=== PATIENT | male | born 1945 | race Caucasian/White ===

== ENCOUNTER 2018-01-12 07:53 | Inpatient (IN) | payer MEDICARE, OTHER ==
[2018-01-12] MEDS ORDERED: ONDANSETRON 4MG/2ML VIAL (J2405) As Ordered ×3 (08:23→11:15)
[2018-01-12] MEDS ORDERED: LIDOCAINE 2% INJ 100 MG/5 ML SDV (FOR ANES.) As Ordered (08:23)
[2018-01-12] MEDS ORDERED: ROCURONIUM BROMIDE 50 MG/5 ML VIAL As Ordered ×2 (08:23→12:28)
[2018-01-12] MEDS ORDERED: PROPOFOL 200 MG/20 ML VIAL As Ordered (08:23)
[2018-01-12] MEDS ORDERED: fentaNYL 250 MCG/5 ML INJECTION (J3010) As Ordered (08:23)
[2018-01-12] MEDS ORDERED: MIDAZOLAM INJ 2 MG/2 ML VIAL (J2250) As Ordered (08:24)
[2018-01-12] MEDS: PERCOCET 5MG/325MG TAB PO ×3 (08:26→15:27)
[2018-01-12] MEDS: GABAPENTIN 300 MG CAP PO ×2 (08:26→20:43)
[2018-01-12] MEDS: CelecoXIB 400 MG CAP PO (08:27)
[2018-01-12] MEDS: LR 1,000 ML IV ×2 (08:27→14:11)
[2018-01-12] MEDS: ONDANSETRON 4MG/2ML VIAL (J2405) IV ×2 (09:24→21:24)
[2018-01-12] MEDS: BUPIVACAINE/EPIN 0.25% 30 ML VIAL As Ordered (10:56)
[2018-01-12] MEDS ORDERED: SUGAMMADEX SODIUM 500 MG/5 ML VIAL (BRIDION) As Ordered (10:56)
[2018-01-12] MEDS ORDERED: HYDROmorphone HCL 2 MG/ML 1ML VIAL (J1170) As Ordered (10:57)
[2018-01-12] MEDS: BACITRACIN PWD 50,000 UNITS VIAL As Ordered (11:45)
[2018-01-12] MEDS: THROMBIN SOLN 20,000 UNITS KIT As Ordered (13:00)
[2018-01-12] MEDS: TRANEXAMIC ACID 100 MG/ML 10ML VIAL As Ordered (13:29)
[2018-01-12] MEDS: EPINEPHrine INJ 1 MG/ML 1ML AMP As Ordered (13:29)
[2018-01-12] MEDS: BUPIVACAINE LIPOSOME/PF 1.3% 20 ML VIAL (13.3MG/ML)(EXPAREL) As Ordered (13:30)
[2018-01-12] MEDS: BUPIVACAINE HCL 0.5% 10 ML VIAL As Ordered (13:30)
[2018-01-12] MEDS ORDERED: HYDROMORPHONE HCL 0.5 MG/ 0.5 ML SYRINGE (J1170 PER 1) IV ×3 (14:30→15:00)
[2018-01-12] MEDS ORDERED: ONDANSETRON 4MG/2ML VIAL (J2405) IV (14:30)
[2018-01-12] MEDS: fentaNYL 100 MCG/2 ML INJECTION (J3010) IV (14:50)
[2018-01-12] MEDS ORDERED: NORCO, ANEXSIA 5/325MG TABLET (HYDROcodone/ACETAMINOPHEN) PO ×2 (15:00)
[2018-01-12] MEDS ORDERED: METOCLOPRAMIDE INJ 10MG/2ML VIAL (J2765) As Ordered (15:22)
[2018-01-12] MEDS: METOCLOPRAMIDE INJ 10MG/2ML VIAL (J2765) IV (15:27)
[2018-01-12] MEDS ORDERED: PROMETHAZINE INJ 25 MG/ML VIAL (J2550) IV (15:45)
[2018-01-12] MEDS: tiZANidine 4 MG TAB PO (20:43)
[2018-01-13 06:43] LABS: ANION GAP 9 MEQ/L (8-16); BLOOD UREA NITROGEN 34 MG/DL (7-18); CALCIUM LEVEL 8.3 MG/DL (8.8-10.2); CARBON DIOXIDE LEVEL 29 MEQ/L (21-32); CHLORIDE LEVEL 105 MEQ/L (98-107); CREATININE FOR GFR 1.55 MG/DL (0.70-1.30); GLUCOSE, FASTING 127 MG/DL (70-100); MAGNESIUM LEVEL 2.2 MG/DL (1.8-2.4); POTASSIUM SERUM 3.7 MEQ/L (3.5-5.1); SODIUM LEVEL 143 MEQ/L (136-145)
[2018-01-13] MEDS: ASPIRIN 81 MG CHEW TABLET PO (08:40)
[2018-01-13] MEDS: GABAPENTIN 300 MG CAP PO (08:41)
[2018-01-13] MEDS: POTASSIUM CHLORIDE 10 MEQ SR TABLET PO (08:41)
[2018-01-13] MEDS: ATORVASTATIN 20 MG TAB PO (08:41)
[2018-01-13] MEDS: amLODIPine 10 MG TAB PO (08:41)
[2018-01-13] MEDS: hydroCHLOROthiazide 25 MG TAB PO (08:41)
[2018-01-13] MEDS: ACETAMINOPHEN TAB 650MG DOSE (2X325MG) PO (08:42)
[2018-01-13] MEDS: METAMUCIL (PSYLLIUM) PACKET PO (08:42)
== END 2018-01-13 12:15 | disposition home or self-care (01) | DRG 520 ==
LOC: M OR 07:53 → M MS5PR 15:40
PROVIDERS: Orthopaedic Surgery
PROC: 00NY0ZZ Release Lumbar Spinal Cord, Open Approach (ICD-10-PCS; principal; 2018-01-12 09:30)
PROC: 01NB0ZZ Release Lumbar Nerve, Open Approach (ICD-10-PCS; 2018-01-12 09:30)
DX: M48.062 Spinal stenosis, lumbar region with neurogenic claudication (principal); I10 Essential (primary) hypertension; I25.10 Atherosclerotic heart disease of native coronary artery without angina pectoris; Z79.82 Long term (current) use of aspirin; Z88.5 Allergy status to narcotic agent; Z79.899 Other long term (current) drug therapy